=== PATIENT | male | born 1965 | race Caucasian/White ===

== ENCOUNTER 2017-07-13 08:00 | Outpatient (CLI) | payer BC, MEDICARE ==
[~2017-07-13 08:00] MED LIST: NO HOME MEDS
== END 2017-07-13 23:59 | disposition home or self-care (01) ==
LOC: DIABETIC 08:00
PROVIDERS: ATTEND Family Medicine
DX: E10.9 Type 1 diabetes mellitus without complications (principal)
CPT/HCPCS: G0108